=== PATIENT | female | born 2000 | race African-American/Black ===

== ENCOUNTER 2022-10-14 15:31 | Emergency (ER) | payer OTHER, SELFPAY ==
[~2022-10-14] VITALS: Ht 165.1 cm; Wt 138.0 kg
[2022-10-14] MEDS ORDERED: METOCLOPRAMIDE INJ 10MG/2ML VIAL IV ONE (17:00)
[2022-10-14 17:31] LABS: BASO % 0.3 % (0.0-1.0); EOS # 0.2 10^3/uL (0.0-0.5); EOS % 1.7 % (0.0-3.0); HEMATOCRIT 39.8 % (36.0-47.0); HEMOGLOBIN 12.6 g/dl (12.0-15.5); LYMPH # 3.4 10^3/uL (1.5-5.0); LYMPH % 37.2 % (24.0-44.0); MEAN CORPUSCULAR HEMOGLOBIN 25.9 pg (27.0-33.0); MEAN CORPUSCULAR HGB CONC 31.7 g/dl (32.0-36.5); MEAN CORPUSCULAR VOLUME 81.7 fl (80.0-96.0); MONO # 0.7 10^3/uL (0.0-0.8); MONO % 8.1 % (2.0-8.0); NEUTROPHILS # 4.7 10^3/uL (1.5-8.5); NEUTROPHILS % 52.4 % (36.0-66.0); PLATELET COUNT, AUTOMATED 287 10^3/uL (150-450); RED BLOOD COUNT 4.87 10^6/uL (4.00-5.40)
[2022-10-14 17:54] LABS: BLOOD UREA NITROGEN 8 MG/DL (9-23); CALCIUM LEVEL 9.4 MG/DL (8.5-10.1); CARBON DIOXIDE LEVEL 26 MMOL/L (20-31); CHLORIDE LEVEL 104 MMOL/L (98-107); CREATININE FOR GFR 0.72 MG/DL (0.55-1.30); GLUCOSE, FASTING 83 MG/DL (60-100); SODIUM LEVEL 138 MMOL/L (136-145)
[2022-10-14] MEDS ORDERED: CEPHALEXIN 500 MG CAP PO ONE (20:00)
[2022-10-14] MEDS ORDERED: REGL10TA6 PO (20:02)
[2022-10-14] MEDS ORDERED: CEPH500C PO (20:02)
[2022-10-14 20:14] VITALS: BP 123/59; TEMP 98.3; O2SAT 100
== END 2022-10-14 20:17 | disposition home or self-care (01) ==
LOC: M ED 15:31 → EEVIPCON 15:31 → M ED 20:17
DX: O21.0 Mild hyperemesis gravidarum (principal); O23.91 Unspecified genitourinary tract infection in pregnancy, first trimester; Z3A.01 Less than 8 weeks gestation of pregnancy
CPT/HCPCS: 80048; 81001; 84702; 85025; 86850; 86900; 86901; 87088; 87184; 87186; 96374; 99284; J2765

== ENCOUNTER 2022-12-11 14:22 | Emergency (ER) | payer OTHER ==
[~2022-12-11] VITALS: Ht 167.6 cm; Wt 70.9 kg
[2022-12-11 14:22] VITALS: BP 125/60; TEMP 98.5; O2SAT 98
[~2022-12-11 14:22] MED LIST: CEPH500C PO; REGL10TA6 PO
== END 2022-12-11 15:04 | disposition left against medical advice (07) ==
LOC: M ED 14:22
DX: Z53.21 Procedure and treatment not carried out due to patient leaving prior to being seen by health care provider (principal)

== ENCOUNTER 2023-04-08 20:59 | Outpatient (CLI) | payer OTHER ==
[~2023-04-08] VITALS: Ht 165.1 cm; Wt 80.5 kg
[2023-04-08 21:17] VITALS: BP 163/84; O2SAT 100
[2023-04-08] MEDS ORDERED: HOME MED LIST COMPLETE! XX SCH (21:25)
[2023-04-08 21:32] VITALS: BP 124/64
[2023-04-08] MEDS: ACETAMINOPHEN 500 MG TAB PO ONE (21:49)
[2023-04-08 22:15] VITALS: BP 135/60
[2023-04-08 22:27] LABS: TOTAL PROTEIN,RANDOM URINE 20.6 MG/DL (0.0-14.0)
[2023-04-08 22:30] LABS: URIC ACID 3.4 MG/DL (3.1-7.8)
[2023-04-08 22:32] LABS: CREATININE,RANDOM URINE 140.9 MG/DL
[2023-04-08 22:32] LABS: LDH LACTATE DEHYDROGENASE 174 U/L (120-246)
[2023-04-08 22:33] LABS: ALT/SGPT 12 U/L (7.0-40); AST/SGOT 17 U/L (<34); BILIRUBIN,TOTAL 0.5 MG/DL (0.3-1.2)
[2023-04-08] MEDS: BETAMETHASONE SOLUSPAN 6MG/ML 5ML VIAL IM SCH (22:39)
[2023-04-08] MEDS: METOCLOPRAMIDE 10MG TAB PO ONE (22:39)
[2023-04-08 22:43] LABS: HEMATOCRIT 31.9 % (36.0-47.0); HEMOGLOBIN 10.1 g/dl (12.0-15.5); MEAN CORPUSCULAR HEMOGLOBIN 25.2 pg (27.0-33.0); MEAN CORPUSCULAR HGB CONC 31.7 g/dl (32.0-36.5); MEAN CORPUSCULAR VOLUME 79.6 fl (80.0-96.0); PLATELET COUNT, AUTOMATED 251 10^3/uL (150-450); RED BLOOD COUNT 4.01 10^6/uL (4.00-5.40); WHITE BLOOD COUNT 11.4 10^3/uL (4.0-10.0)
== END 2023-04-08 22:57 | disposition home or self-care (01) ==
LOC: M LDO 20:59
PROVIDERS: ATTEND Obstetrics & Gynecology
DX: O26.893 Other specified pregnancy related conditions, third trimester (principal); R51.9 Headache, unspecified; R03.0 Elevated blood-pressure reading, without diagnosis of hypertension; O34.219 Maternal care for unspecified type scar from previous cesarean delivery; Z3A.32 32 weeks gestation of pregnancy
CPT/HCPCS: 36415; 59025; 76815; 82247; 82570; 83615; 84156; 84450; 84460; 84550; 85027; 96372; G0463; J0702

== ENCOUNTER 2023-04-09 21:59 | Outpatient (CLI) | payer OTHER ==
[~2023-04-09] VITALS: Ht 165.1 cm; Wt 80.2 kg
[2023-04-09] MEDS: BETAMETHASONE SOLUSPAN 6MG/ML 5ML VIAL IM SCH (22:37)
[2023-04-09 23:48] VITALS: BP 133/60
== END 2023-04-09 22:45 | disposition home or self-care (01) ==
LOC: M LDO 21:59
PROVIDERS: ATTEND Obstetrics & Gynecology
DX: O26.893 Other specified pregnancy related conditions, third trimester (principal); R51.9 Headache, unspecified; R03.0 Elevated blood-pressure reading, without diagnosis of hypertension; O34.219 Maternal care for unspecified type scar from previous cesarean delivery; Z3A.32 32 weeks gestation of pregnancy
CPT/HCPCS: 59025; 96372; G0463; J0702

== ENCOUNTER 2023-04-18 10:58 | Outpatient (CLI) | payer OTHER ==
[~2023-04-18] VITALS: Ht 165.1 cm; Wt 82.1 kg
[2023-04-18 11:15] VITALS: BP 129/64
[2023-04-18] MEDS ORDERED: ACET-897 PO (11:19)
[2023-04-18] MEDS ORDERED: FERR325T3 PO (11:19)
[2023-04-18] MEDS ORDERED: PRENTAB9 PO (11:19)
== END 2023-04-18 14:27 | disposition home or self-care (01) ==
LOC: M LDO 10:58
PROVIDERS: ATTEND Advanced Practice Midwife
DX: O26.893 Other specified pregnancy related conditions, third trimester (principal); R51.9 Headache, unspecified; R10.9 Unspecified abdominal pain; O34.219 Maternal care for unspecified type scar from previous cesarean delivery; Z3A.33 33 weeks gestation of pregnancy
CPT/HCPCS: 59025; G0463